=== PATIENT | female | born 1960 | race Caucasian/White ===

== ENCOUNTER 2024-01-31 10:40 | Emergency (ER) | payer OTHER, SELFPAY ==
[2024-01-31] VITALS (7 sets, daily range): BP systolic 110–137; BP diastolic 68–88; PULSE 60–90; RESP 15–17; TEMP 36.6; O2SAT 98–100
--- NOTE | ~2024-01-31 | XR_ITS ---
EXAMINATION: XR chest 2V DATE: 01/31/2024 12:09 INDICATION: Shortness of breath and chest tightness TECHNIQUE: PA and lateral views of the chest were obtained. COMPARISON: None FINDINGS: The lungs are clear with no focal airspace opacities, pulmonary edema, pleural effusion or pneumothor ax. The cardiomediastinal silhouette is normal. Mild thoracic spondylosis. IMPRESSION: 1. No acute cardiopulmonary disease. Reviewed, dictated and finalized at location B.
--- NOTE | 2024-01-31 10:47 | ECG_ITS ---
Test Date: 2024-01-31 10:55:37 Measurements Intervals [place] Rate: 74 P: 0 [place]: 0 QRS: 15 QRSD: 89 T: 60 QT: 386 QTc: 430 Interpretive Statements ATRIAL FIBRILLATION BORDERLINE R WAVE PROGRESSION, ANTERIOR LEADS CONSIDER INFERIOR INFARCT, AGE INDETERMINATE NONSPECIFIC ST & T-WAVE ABNORMALITY- ANTEROLAT/HIGH LAT LEADS BASELINE ARTIFACT- I, II, AVR ABNORMAL ECG No previous ECG available for comparison Electronically Signed On 01-31-2024 11:44:27 CDT by Aguilar Amezquita D.O.
[2024-01-31 11:13] LABS: Basophils Absolute Auto 0.1 K/mm3 (0.0-0.1); Basophils Percent Auto 0.9 % (0.2-1.2); Eosinophils Absolute Auto 0.2 K/mm3 (0-0.3); Hematocrit 41.8 % (37.0-47.0); Immature Granulocyte Absolute 0.01 K/mm3 (0.00-0.031); Immature Granulocyte Percent A 0.2 % (0-0.5); Lymphocytes Absolute Auto 2.15 K/mm3 (0.9-3.2); Lymphocytes Percent Auto 40.4 % (18.3-44.2); Mean Corpuscular HGB Conc 33.5 g/dl (32-36); Mean Corpuscular Hemoglobin 30.4 pg (26-34); Mean Corpuscular Volume 90.9 fl (80-100); Mean Platelet Volume 10.5 fl (7.4-10.4); Monocytes Absolute Auto 0.4 K/mm3 (0.1-0.6); Monocytes Percent Auto 6.6 % (2.6-8.5); Neutrophils Absolute Auto 2.6 K/mm3 (1.3-6.7); Neutrophils Percent Auto 48.9 % (45.5-73.1); Platelet Count Result 282 k/mm3 (150-375); Red Cell Distribution Width 12.9 % (11.5-14.5); White Blood Count 5.3 K/mm3 (4.5-10.0)
[2024-01-31 11:24] LABS: Alanine Aminotransferase 20 U/L (6-35); Albumin Level 4.4 g/dL (3.5-5.1); Alkaline Phosphatase 61 U/L (38-126); Anion Gap 14 mmol/L (4-12); Aspartate Amino Transferase 27 U/L (14-36); Bilirubin,Total 0.4 mg/dL (0.2-1.3); Blood Urea Nitrogen 15 mg/dL (7-17); Calcium 9.4 mg/dL (8.4-10.2); Carbon Dioxide 23 mmol/L (22-30); Chloride 100 mmol/L (98-107); Estimated CRCL calculation 85 ml/min; Estimated Glomerular Filt Rate > 60; Glucose 143 mg/dL (65-110); Lipase 37 U/L (23-300); Potassium 3.3 mmol/L (3.4-5.0); Sodium 137 mmol/L (137-145)
[2024-01-31 11:26] LABS: Prothrombin Time 13.5 Seconds (11.1-14.7)
[2024-01-31 11:27] LABS: Partial Thromboplastin Time 31.7 Seconds (22.3-36.8)
[2024-01-31 11:35] LABS: Troponin I < 0.012 ng/mL (0.000-0.034)
--- NOTE | 2024-01-31 12:22 | ED.DIZZY ---
HPI - Dizziness General Chief Complaint: Dizziness Stated Complaint: dizzy/sob Time Seen by Provider: 01/31/24 12:04 History of Present Illness HPI Narrative: 63-year-old female with a history of AFib on Eliquis, hypothyroidism, hypertension presenting with generalized weakness and lightheadedness. Patient states that she was recently diagnosed with AFib and started on Eliquis about a days ago. 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 Today she was vacuuming when she started to feel generally weak, lightheaded, slightly nauseated. States that she checked her blood pressure and it was 86 systolic. States that she had some chest tightness but no pain. States that she often has chest tightness. No shortness of breath, palpitations, leg swelling. States that she has been thirsty, possibly feels dehydrated. No infectious symptoms. No further complaints. Related Data Allergies Allergy/AdvReac Type Severity Reaction Status Date / Time No Known Allergies Allergy Verified 01/31/24 12:42 Review of Systems Review of Systems: All systems reviewed & are unremarkable except as noted in HPI and below Exam Narrative: GENERAL: Well-appearing, in no acute distress, pleasant cooperative HEAD: Normocephalic, atraumatic. EYES: PERRLA and EOMI. ENT: Mucous membranes moist. NECK: Supple. CHEST: Clear to auscultation. No respiratory distress. HEART: Irregularly irregular rhythm, regular rate ABDOMEN: Soft, nontender, nondistended EXTREMITIES: Normal range of motion. No edema. SKIN: Warm, dry, no rash. NEURO: No focal deficits. Alert and oriented x3. PSYCH: Normal mood and affect. Course Vital Signs Vital signs: Vital Signs Temperature 97.9 F 01/31/24 10:53 Pulse Rate 60 01/31/24 10:53 Respiratory Rate 17 01/31/24 10:53 Blood Pressure 112/68 01/31/24 10:53 Pulse Oximetry 100 01/31/24 10:53 Oxygen Delivery Room Air 01/31/24 10:53 Temperature 97.9 F 01/31/24 10:53 Pulse Rate 79 01/31/24 14:16 Respiratory Rate 15 01/31/24 14:16 Blood Pressure 110/85 01/31/24 14:16 Pulse Oximetry 98 01/31/24 14:16 Oxygen Delivery Room Air 01/31/24 10:53 MDM - Dizziness MDM Narrative Medical decision making narrative: 63-year-old female presenting with lightheadedness, nausea, generalized weakness. Vitals within normal limits. Exam remarkable for the above. EKG per my interpretation shows atrial fibrillation with a ventricular rate of 74, no ST elevations or depressions. Potassium is a bit low 3.3. This was orally repleted. Patient declined fluids, states that she is feeling better. Remainder of her workup is unremarkable. Troponins are undetectable x2. Chest x-ray without acute abnormalities. 3 hour EKG shows AFib that is rate controlled. Blood pressures have remained normal. Feel she is safe for outpatient management. Advised more aggressive oral rehydration and close PCP follow-up. Appropriate return precautions given. Patient is agreeable this plan. Discharged in stable condition. Differential Diagnosis Differential diagnosis: Likely other (atrial fibrillation, nausea, lightheadedness, dehydration) Medical Records Attestation: I reviewed the patient's medical records. Lab Data Attestation: I reviewed the patient's lab results. 01/31/24 11:06 01/31/24 11:06 Labs: Lab Results 01/31/24 01/31/24 Range/Units 11:06 13:33 WBC 5.3 (4.5-10.0) K/mm3 RBC 4.60 (4.2-5.4) M/mm3 Hgb 14.0 (12.0-15.0) g/dL Hct 41.8 (37.0-47.0) % MCV 90.9 (80-100) fl MCH 30.4 (26-34) pg MCHC 33.5 (32-36) g/dl RDW 12.9 (11.5-14.5) % Plt Count 282 (150-375) k/mm3 MPV 10.5 H (7.4-10.4) fl Immature Gran % (Auto) 0.2 (0-0.5) % Neut % (Auto) 48.9 (45.5-73.1) % Lymph % (Auto) 40.4 (18.3-44.2) % [place] % (Auto) 6.6 (2.6-8.5) % Eos % (Auto) 3.0 (0-4.4) % Baso % (Auto) 0.9 (0.2-1.2) % Lymph
--- NOTE | 2024-01-31 13:02 | PC.NURSE ---
Pt reports the sudden onset of dizziness and chest tightness that she experienced this AM has subsided. Reports only slight lightheadedness when ambulating.
--- NOTE | 2024-01-31 13:35 | ECG_ITS ---
Test Date: 2024-01-31 14:08:43 Measurements Intervals [place] Rate: 67 P: 0 CT: 0 QRS: 9 QRSD: 97 T: 85 QT: 385 QTc: 407 Interpretive Statements ATRIAL FIBRILLATION CONSIDER INFERIOR INFARCT, AGE INDETERMINATE CONSIDER ANTERIOR INFARCT, AGE INDETERMINATE BORDERLINE ST-T WAVE ABNORMALITY- ANTEROLAT/HIGH LAT LEADS BASELINE ARTIFACT- I, III, AVL ABNORMAL ECG Compared to ECG 01/31/2024 10:55:37 NO SIGNIFICANT CHANGE Electronically Signed On 01-31-2024 14:40:52 CDT by Aguilar Amezquita D.O.
[2024-01-31 14:01] LABS: Troponin I < 0.012 ng/mL (0.000-0.034)
[2024-01-31] MEDS: POTASSIUM CHLORIDE 20 MEQ ER TABLET 40 MEQ PO (14:26)
--- NOTE | 2024-01-31 14:28 | PC.NURSE ---
Pt states she does not want anymore needle pokes. Pt denying fluids.
== END 2024-01-31 15:19 | disposition home or self-care (01) ==
PROVIDERS: Emergency Medicine; Emergency Provider Emergency Medicine
DX: I48.91 Unspecified atrial fibrillation (principal); R42 Dizziness and giddiness; E87.6 Hypokalemia; Z79.01 Long term (current) use of anticoagulants; E03.9 Hypothyroidism, unspecified; I10 Essential (primary) hypertension
CPT/HCPCS: 36415; 71046; 80053; 83690; 84484; 85025; 85610; 85730; 93005; 99284; A9270